=== PATIENT | female | born 1970 | race Hispanic/Latino ===

== ENCOUNTER 2023-06-20 18:30 | Observation (INO) | payer BC ==
[~2023-06-20] VITALS: Ht 162.6 cm; Wt 131.5 kg
[~2023-06-20 18:30] MED LIST: CLINDAMYCIN HC150 MG PO
[2023-06-20] MEDS: METHYLPREDNISOLONE SOD SUCC 125 MG/2ML VIAL IM ONE (19:02)
[2023-06-20 19:07] VITALS: PULSE 82; RESP 16; O2SAT 96
[2023-06-20] MEDS: IPRATROPIUM BROMIDE 0.02% 2.5 ML NEB NEB ONE (19:11)
[2023-06-20] MEDS: ALBUTEROL SULF 0.083% NEB SOLN 3 ML NEB NEB STA (19:12)
[2023-06-20 19:35] LABS: INFLUENZAE A&B ANTIGEN (RAPID) NEGATIVE (NEGATIVE); RESPIRATORY SYNC. VIRUS NEGATIVE (NEGATIVE)
[2023-06-20 20:26] LABS: BASOPHILS # (AUTO) 0.1 (0.0-0.1); BASOPHILS % 0.6 % (0.0-1.0); EOSINOPHILS # (AUTO) 0.3 (0.0-0.4); HEMATOCRIT 41.1 % (34.2-44.1); HEMOGLOBIN 13.3 g/dL (12.0-16.0); LYMPHOCYTES # (AUTO) 7.2 (1.0-3.2); LYMPHOCYTES % 46.7 % (18.0-39.1); MEAN CORPUSCULAR HEMOGLOBIN 26.8 pg (28-32); MEAN CORPUSCULAR HGB CONC 32.4 g/dL (31-35); MEAN CORPUSCULAR VOLUME 82.9 fL (81-99); MONOCYTES # (AUTO) 0.8 (0.2-0.8); MONOCYTES % 5.4 % (4.4-11.3); NEUTROPHILS # (AUTO) 6.9 (2.1-6.9); NEUTROPHILS % 44.8 % (38.7-80.0); PLATELET COUNT 290 x10e3/uL (140-360); RED BLOOD COUNT 4.96 x10e6/uL (3.6-5.1); RED CELL DISTRIBUTION WIDTH 16.7 % (11.7-14.4); WHITE BLOOD COUNT 15.47 x10e3/uL (4.8-10.8)
[2023-06-20 20:42] LABS: ALBUMIN 3.6 g/dL (3.5-5.0); ALBUMIN/GLOBULIN RATIO 0.7 (0.8-2.0); ANION GAP 15.1 mmol/L (8-16); BILIRUBIN,TOTAL 0.3 mg/dL (0.2-1.2); CALCIUM 10.1 mg/dL (8.4-10.2); CREATININE, SERUM 0.76 mg/dL (0.57-1.11); POTASSIUM 4.1 mmol/L (3.5-5.1); TOTAL PROTEIN 8.7 g/dL (6.5-8.1)
[2023-06-20 20:50] LABS: BASOPHILS % (MANUAL) 2 % (0-1.5); EOSINOPHILS % (MANUAL) 3 % (0-7); LYMPHOCYTES % (MANUAL) 48 % (19-48); MONOCYTES % (MANUAL) 5 % (3.4-9.0); NEUTROPHILS % (MANUAL) 40 % (40-74); PLATELET ESTIMATE ADEQUATE; PLATELET MORPHOLOGY COMMENT NORMAL; RBC MORPHOLOGY COMMENT NORMAL; REACTIVE LYMPHOCYTES 2
[2023-06-20] MEDS ORDERED: SODIUM CHLORIDE FLUSH 10 ML SYR INJ PRN (22:00)
[2023-06-20] MEDS ORDERED: ONDANSETRON HCL INJ 2MG/ML 2ML 2 MG/ML VIAL IV PRN (22:00)
[2023-06-20 23:00] VITALS: BP 129/80; PULSE 94; RESP 18; TEMP 98.3; O2SAT 96
[2023-06-20] MEDS: FUROSEMIDE INJ 10 MG/ML 2 ML VIAL IV ONE (23:42)
[2023-06-20] MEDS: METHYLPREDNISOLONE SOD SUCC 40 MG/ML VIAL 1ML IV SCH (23:42)
[2023-06-20 23:47] VITALS: PULSE 93; RESP 18; O2SAT 92
[2023-06-20] MEDS: ALBUTEROL/IPRATROPIUM 3 ML NEB NEB SCH (23:48)
[2023-06-21] VITALS (12 sets, daily range): BP systolic 122–146; BP diastolic 54–82; PULSE 89–114; RESP 18–21; TEMP 97.4–98.3; O2SAT 92–96
[2023-06-21] MEDS ORDERED: LOSARTAN POTASS25 MG PO (00:13)
[2023-06-21] MEDS ORDERED: PROVENTIL HFA6.7 GM INH (00:14)
[2023-06-21 05:27] LABS: BASOPHILS # (AUTO) 0.1 (0.0-0.1); BASOPHILS % 0.3 % (0.0-1.0); EOSINOPHILS % 0.1 % (0.0-6.0); HEMATOCRIT 45.4 % (34.2-44.1); HEMOGLOBIN 13.9 g/dL (12.0-16.0); LYMPHOCYTES # (AUTO) 2.5 (1.0-3.2); LYMPHOCYTES % 17.1 % (18.0-39.1); MEAN CORPUSCULAR HEMOGLOBIN 26.3 pg (28-32); MEAN CORPUSCULAR HGB CONC 30.6 g/dL (31-35); MONOCYTES # (AUTO) 0.1 (0.2-0.8); MONOCYTES % 0.7 % (4.4-11.3); NEUTROPHILS # (AUTO) 11.9 (2.1-6.9); PLATELET COUNT 217 x10e3/uL (140-360); RED BLOOD COUNT 5.28 x10e6/uL (3.6-5.1); RED CELL DISTRIBUTION WIDTH 16.8 % (11.7-14.4); WHITE BLOOD COUNT 14.75 x10e3/uL (4.8-10.8)
[2023-06-21 06:29] LABS: ALBUMIN 3.6 g/dL (3.5-5.0); ALBUMIN/GLOBULIN RATIO 0.6 (0.8-2.0); ANION GAP 18.9 mmol/L (8-16); BILIRUBIN,TOTAL 0.2 mg/dL (0.2-1.2); CALCIUM 10.2 mg/dL (8.4-10.2); CREATININE, SERUM 0.88 mg/dL (0.57-1.11); POTASSIUM 4.9 mmol/L (3.5-5.1); TOTAL PROTEIN 9.2 g/dL (6.5-8.1)
[2023-06-21 06:53] LABS: TROPONIN I 0.01 ng/mL (0-0.300)
[2023-06-21] MEDS ORDERED: HYDRALAZINE HCL 20 MG/ML VIAL IV PRN (12:15)
[2023-06-21] MEDS ORDERED: ACETAMINOPHEN 325 MG TAB PO PRN (12:15)
[2023-06-21] MEDS ORDERED: ALBUTEROL/IPRATROPIUM 3 ML NEB NEB PRN (12:15)
[2023-06-21] MEDS: METOPROLOL TARTRATE INJ 1 MG/ML VIAL IV ONE (12:40)
[2023-06-21 13:29] LABS: TROPONIN I 0.02 ng/mL (0-0.300)
[2023-06-21] MEDS: AZITHROMYCIN 250 MG TAB PO SCH (13:37)
[2023-06-21] MEDS: ENOXAPARIN SOD INJ 40 MG/0.4 ML SYR SC SCH (17:05)
[2023-06-21] MEDS: LOSARTAN POTASSIUM 25 MG TAB PO SCH (17:06)
[2023-06-21] MEDS ORDERED: DOXYCYCLINE HY100 MG PO (18:10)
[2023-06-21] MEDS ORDERED: PREDNISONE50 MG PO (18:10)
[2023-06-21] MEDS ORDERED: LASIX20 MG PO (18:14)
[2023-06-22] MEDS ORDERED: SENNOSIDES 8.6 MG TAB PO SCH (09:00)
[2023-06-22] MEDS ORDERED: DOCUSATE SODIUM 100 MG CAP PO SCH (09:00)
== END 2023-06-21 18:54 | disposition home or self-care (01) ==
LOC: ER 18:34 → ERHOLD 21:55 → MED/SURG3 22:49
PROVIDERS: ADMIT Internal Medicine; ATTEND Internal Medicine
DX: J45.901 Unspecified asthma with (acute) exacerbation (principal); J06.9 Acute upper respiratory infection, unspecified; I11.0 Hypertensive heart disease with heart failure; I50.32 Chronic diastolic (congestive) heart failure; E66.01 Morbid (severe) obesity due to excess calories; Z68.42 Body mass index [BMI] 45.0-49.9, adult; E28.2 Polycystic ovarian syndrome; Z20.822 Contact with and (suspected) exposure to COVID-19
CPT/HCPCS: 36415 ×2; 71045 ×2; 71250; 80053 ×2; 82550; 83880; 84484 ×2; 85025 ×2; 87400; 87420; 93005; 93306; 94640; 94799 ×2; 99284; G0378 ×2; J0696; J1650; J1940; J2919 ×3; U0002